=== PATIENT | male | born 1965 | race Caucasian/White ===

== ENCOUNTER 2019-02-02 23:06 | Emergency (ER) | payer MEDICAID ==
[~2019-02-02] VITALS: Ht 188 cm; Wt 72.6 kg
[2019-02-02 23:18] VITALS: Ht 188 cm; Wt 72.6 kg
[2019-02-03 01:50] LABS: BASOPHIL % 0.7 % (0-2); PLATELET COUNT 163 x10^3mcL (130-400)
[2019-02-03 01:52] LABS: CALCIUM 8.3 mg/dL (8.5-10.1); CARBON DIOXIDE 29.6 mmol/L (21-32); CHLORIDE SERUM 102 mmol/L (98-107); CREATININE SERUM 0.9 mg/dL (0.7-1.3); GFR1 > 60 mL/min; GLUCOSE SERUM 94 mg/dL (74-106); POTASSIUM SERUM 4.1 mmol/L (3.5-5.1); RED CELL DISTRIBUTION WIDTH 14.9 % (11.5-14.5); SODIUM SERUM 138 mmol/L (136-145)
[2019-02-03 01:57] LABS: ALBUMIN 3.1 g/dL (3.4-5.0); ALKALINE PHOSPHATASE 79 U/L (46-116); ALT/SGPT 38 U/L (16-63); AST/SGOT 30 U/L (15-37); TOTAL PROTEIN, SERUM 6.5 g/dL (6.4-8.2)
[2019-02-03 15:17] VITALS: BP 132/81
--- NOTE | 2019-02-03 15:24 | NUR ---
02/03/19 1300 SS NOTE/KD MANZANO DNA SEQUENCING ASSOCIATE: REC'D ORDER PATIENT NEEDS ASSISTANCE WITH OBTAINING MEDICATIONS. ER PHYSICIAN COMPLETED ASSESSMENT AND PATIENT CLEARED FOR DISCHARGE. SS INTERVIEWED PATIENT; HE IS TRANSIENT AND HAS BEEN IN [place] FOR A YEAR HE STATES. PATIENT IS ORIGINALLY FROM [place], [place], HE STATES HE DOES NOT HAVE MUCH FAMILY LEFT IN [place], ALL OLDER THAN PATIENT. 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 HE COLLECTS GENERAL RELIEF, BUT HAS NO MATA ON HIM NOW, STATING THE GANGS IN [place] WHERE HE WAS STAYING BEAT HIM UP AND STOLE HIS ID. HE GOES TO [facility] IN [place] AND HE PROVIDED THEIR ADDRESS OF [id number]; SS CONFIRMED ADDRESS LOOKING IT UP ON THE INTERNET; PATIENT STATES HE ALWAYS TALKS TO [place]. PATIENT STATES HE DOES NOT KNOW WHERE HE WILL GO NEXT, BUT HE'S NOT GOING TO ANY [facility]P. HE WAS NOT IN THE . PATIENT STATES HE WAS STAYING IN [place] AND [facility]; HOWEVER HE DOES NOT HAVE OR KNOW WHAT HIS INSURANCE IS. SS CALLED [facility] [phone], SPOKE TO ALONDRA/PUBLIC RELATIONS ASSOCIATE, INQUIRED IF PATIENT HAD FILLED PRESCRIPTIONS THERE AND IF SHE COULD PROVIDE HIS PHARMACY ID NUMBER. ALONDRA PROVIDED ID #[id number], GROUP RX [id number], [place] #[id number], [facility]; THIS IS A [employer] MEDI-ARRON NUMBER. SS CALLED [employer] [facility] [phone], SPOKE TO GARETT; SS INQUIRED IF THIS WAS A VALID INSURANCE CARD CURRENTLY; PER GARETT IT IS AND IT IS [employer]: [email or web address]. SS THEN CALLED ADMITTING, SPOKE TO TAMIKO, PROVIDED THE ABOVE INFORMATION AND IT WAS CONFIRMED THAT PATIENT HAS [employer] INSURANCE COVERAGE FOR THE HOSPITAL. PATIENT'S IS [birth year] PER [employer]'S GARETT. SS REQUESTED THAT PATIENT'S FACE SHEET BE UPDATED. 4008 SS MET WITH PATIENT AGAIN AFTER ALL THE ABOVE INFORMATION WAS RESEARCHED; PATIENT WAS UP PACING AROUND HIS GURNEY STATING HE WANTED TO LEAVE, BUT DOES NOT HAVE A PLACE IN MIND WHERE HE WILL GO. SS PROVIDED AND EDUCATED PATIENT ON HOMELESS RESOURCES, POINTING OUT FOOD PANTRIES CLOSE BY IN [place] AND [place] AND PROVIDED HIM WITH 3 BUS PASSES. PATIENT STATED "THESE (holding bus passes) WILL GET ME WHERE I NEED TO GO. ADDITIONALLY, SS EDUCATED PATIENT ON HIS INSURANCE INFORMATION AND PROVIDED HIM WITH [facility] DEMO[facility]APH[facility] FACE SHEET WHICH INCLUDED HIS ID NUMBER ALONG WITH HIS PHARMACY ID INFORMATION. SS EXPLAINED TO PATIENT THAT HE WILL BE ABLE TO OBTAIN HIS MEDICATIONS AT [facility]ER [facility], [facility], OR [facility]. ER STAFF PROVIDED PATIENT WITH APPROPRIATE WEATHER CLOTHING. PATIENT SIGNED HOMELESS WAIVER, THIS WAS PLACED ON HIS CHART. HOMELESS RESOURCES AND 3 BUS PASSES GIVEN TO PATIENT.
== END 2019-02-03 15:17 | disposition home or self-care (01) ==
LOC: ED 23:06
PROVIDERS: Emergency Medicine
DX: N50.89 Other specified disorders of the male genital organs (principal); R30.9 Painful micturition, unspecified; F17.210 Nicotine dependence, cigarettes, uncomplicated; I50.9 Heart failure, unspecified; Z71.6 Tobacco abuse counseling; Z88.0 Allergy status to penicillin
CPT/HCPCS: 83880; 99406; J1940; J2060; Q0092